=== PATIENT | male | born 1965 | race Caucasian/White ===

== ENCOUNTER 2018-06-19 09:41 | Emergency (ER) | payer OTHER ==
[~2018-06-19] VITALS: Ht 177.8 cm; Wt 98.9 kg
[~2018-06-19 09:41] MED LIST: CLINDAMYCIN HC300 MG PO; FLEXERIL10 MG PO; NAPROXEN500 MG PO; NORCO 5/3251 TABLET PO; VOLTAREN75 MG PO
[2018-06-19] MEDS ORDERED: PREDNISONE50 MG PO (11:02)
[2018-06-19 11:27] VITALS: BP 131/93
== END 2018-06-19 11:28 | disposition home or self-care (01) ==
LOC: EME 09:41
DX: M54.12 Radiculopathy, cervical region (principal); F17.200 Nicotine dependence, unspecified, uncomplicated; Z88.0 Allergy status to penicillin
CPT/HCPCS: 99281; 99283